=== PATIENT | female | born 1995 | race Caucasian/White ===

== ENCOUNTER 2020-04-23 14:34 | Emergency (ER) | payer OTHER ==
[~2020-04-23] VITALS: Ht 172.7 cm; Wt 95.3 kg
[2020-04-23] MEDS ORDERED: LIDOCAINE HCL 2% 20 ML VIAL TP ONE (15:15)
--- NOTE | 2020-04-23 15:28 | NUR ---
Patient discharged to home in stable condition. Written and verbal after care instructions given. Patient verbalizes understanding of instructions. Stressed follow up or return to ER for worsening s/s.
== END 2020-04-23 15:33 | disposition home or self-care (01) ==
LOC: ER 14:34
DX: L02.416 Cutaneous abscess of left lower limb (principal); S91.03 Puncture wound without foreign body of ankle; X78.8XXS Intentional self-harm by other sharp object, sequela; F11.10 Opioid abuse, uncomplicated; F15.10 Other stimulant abuse, uncomplicated
CPT/HCPCS: 10060; 73610; 99283; J3490; A4663